=== PATIENT | male | born 1955 | race Caucasian/White ===

== ENCOUNTER → 2021-02-27 | Outpatient (CLI) | payer OTHER | LOC: KOH-I 13:42 | DX: F17.210 Nicotine dependence, cigarettes, uncomplicated (principal); R91.1 Solitary pulmonary nodule | CPT/HCPCS: 71271 ==

== ENCOUNTER 2021-09-05 12:04 | Observation (INO) | payer OTHER ==
[~2021-09-05] VITALS: Ht 180.3 cm; Wt 95.3 kg
[2021-09-05 12:48] LABS: HEMOGLOBIN 15.8 gm/dl (14.0-17.5); RED BLOOD COUNT 4.63 M/UL (4.20-5.50); WHITE BLOOD COUNT 7.2 K/UL (4.5-11.0)
[2021-09-05 13:04] LABS: BUN/CREATININE RATIO 16 (0-10)
[2021-09-05] MEDS ORDERED: AZOR 10-40 MG1 EACH PO (14:57)
[2021-09-05] MEDS ORDERED: PLAVIX 75 MG TA75 MG PO (14:57)
[2021-09-05] MEDS ORDERED: CARVEDILOL25 MG PO (14:58)
[2021-09-05] MEDS ORDERED: PRAVASTATIN SOD40 MG PO (14:58)
[2021-09-05] MEDS ORDERED: METFORMIN HCL500 MG PO (14:58)
[2021-09-05] MEDS ORDERED: FISH OIL 1,0001 EACH PO (14:59)
[2021-09-05] MEDS ORDERED: VITAMIN B-121000 MCG PO (14:59)
[2021-09-06 03:07] LABS: BUN/CREATININE RATIO 22 (0-10)
[2021-09-06] MEDS ORDERED: CLINDAMYCIN HC150 MG PO (12:22)
== END 2021-09-06 13:45 | disposition home or self-care (01) ==
LOC: ER1 12:04 → CDU 14:34 → MED SURG 4 23:55
PROVIDERS: Emergency Medicine; ADMIT Family Medicine
DX: R68.84 Jaw pain (principal); R07.89 Other chest pain; K02.9 Dental caries, unspecified; I10 Essential (primary) hypertension; I25.10 Atherosclerotic heart disease of native coronary artery without angina pectoris; I25.2 Old myocardial infarction; I45.10 Unspecified right bundle-branch block; E78.5 Hyperlipidemia, unspecified; M19.90 Unspecified osteoarthritis, unspecified site; E11.9 Type 2 diabetes mellitus without complications; N40.1 Benign prostatic hyperplasia with lower urinary tract symptoms; N13.8 Other obstructive and reflux uropathy; F17.210 Nicotine dependence, cigarettes, uncomplicated; E55.9 Vitamin D deficiency, unspecified; Z20.822 Contact with and (suspected) exposure to COVID-19; Z79.02 Long term (current) use of antithrombotics/antiplatelets; Z79.84 Long term (current) use of oral hypoglycemic drugs; Z79.899 Other long term (current) drug therapy; Z95.5 Presence of coronary angioplasty implant and graft; Z91.14 Patient's other noncompliance with medication regimen
CPT/HCPCS: 36415; 71045; 80048; 82550; 82553; 82962; 84484; 85025; 93005; 99285; G0378; U0002

== ENCOUNTER 2022-02-23 06:27 | Inpatient (IN) | payer OTHER ==
[~2022-02-23] VITALS: Ht 180.3 cm; Wt 94.8 kg
[~2022-02-23 06:27] MED LIST: AZOR 10-40 MG1 EACH PO; CARVEDILOL25 MG PO; CLINDAMYCIN HC150 MG PO; FISH OIL 1,0001 EACH PO; METFORMIN HCL500 MG PO; PLAVIX 75 MG TA75 MG PO; PRAVASTATIN SOD40 MG PO; VITAMIN B-121000 MCG PO
[2022-02-23 07:21] LABS: HEMOGLOBIN 16.1 gm/dl (14.0-17.5); RED BLOOD COUNT 4.67 M/UL (4.20-5.50); WHITE BLOOD COUNT 10.6 K/UL (4.5-11.0)
[2022-02-23 07:47] LABS: BUN/CREATININE RATIO 15 (0-10)
[2022-02-23] MEDS ORDERED: HYDROCHLOROTH12.5 M1 PO (13:40)
[2022-02-24 04:09] LABS: HEMOGLOBIN 14.2 gm/dl (14.0-17.5)
[2022-02-24 04:10] LABS: RED BLOOD COUNT 4.13 M/UL (4.20-5.50); WHITE BLOOD COUNT 7.6 K/UL (4.5-11.0)
[2022-02-24 04:30] LABS: BUN/CREATININE RATIO 18 (0-10)
[2022-02-25 01:56] LABS: HEMOGLOBIN 14.1 gm/dl (14.0-17.5); RED BLOOD COUNT 4.1 M/UL (4.20-5.50)
[2022-02-25 02:20] LABS: BUN/CREATININE RATIO 12 (0-10)
[2022-02-27 14:10] LABS: APTT 41.7 sec (22.9-30.2); APTT 1:1 NORMAL PLASMA 29.4 sec (22.9-30.2); APTT 1:1 NP INCUB. MIX CTL 33.8 sec (22.9-30.2)
== END 2022-02-25 12:44 | disposition short-term general hospital (02) | DRG 282 ==
LOC: ER1 06:27 → PROG CARE 08:20 → CDU 08:20 → PROG CARE 10:15
PROVIDERS: Internal Medicine; Physician Assistant; ADMIT Internal Medicine
PROC: B24BZZZ Ultrasonography of Heart with Aorta (ICD-10-PCS; principal; 2022-02-24)
PROC: 4A023N7 Measurement of Cardiac Sampling and Pressure, Left Heart, Percutaneous Approach (ICD-10-PCS; 2022-02-25)
PROC: B2111ZZ Fluoroscopy of Multiple Coronary Arteries using Low Osmolar Contrast (ICD-10-PCS; 2022-02-25)
DX: I21.4 Non-ST elevation (NSTEMI) myocardial infarction (principal); I10 Essential (primary) hypertension; E78.5 Hyperlipidemia, unspecified; E11.9 Type 2 diabetes mellitus without complications; I45.10 Unspecified right bundle-branch block; F17.200 Nicotine dependence, unspecified, uncomplicated; E66.01 Morbid (severe) obesity due to excess calories; F41.9 Anxiety disorder, unspecified; I25.10 Atherosclerotic heart disease of native coronary artery without angina pectoris; J44.9 Chronic obstructive pulmonary disease, unspecified; E87.6 Hypokalemia; Z95.5 Presence of coronary angioplasty implant and graft; Z90.49 Acquired absence of other specified parts of digestive tract; Z91.048 Other nonmedicinal substance allergy status; Z79.82 Long term (current) use of aspirin
CPT/HCPCS: ECHO; 36415; 71045; 80053; 80061; 82550; 82553; 82962; 83036; 83735; 84100; 84484; 85025; 85610; 85730; 85732; 93005; 93306; 96374; 99152; 99153; 99285; C1769; C1894; J1644; J2250; J3010; J7040; Q9967